=== PATIENT | female | born 1940 | race Caucasian/White ===

== ENCOUNTER → 2018-07-14 | Outpatient (CLI) | payer MEDICARE, BC ==
--- NOTE | 2018-07-18 09:13 | MM ---
Reason for exam: screening (asymptomatic). Last mammogram was performed 3 years and 1 month ago. History: Patient is postmenopausal. Benign right mammotome panel of the right breast, November 23, 2012. Took hormonal contraceptives for 5 years beginning at age 26. MG 3D Screening Mammo W/Cad Bilateral CC and MLO view(s) were taken. Prior study comparison: June 12, 2015, bilateral MG 3d screening mammo w/cad. March 09, 2014, bilateral MG screening mammo w CAD. The breast tissue is heterogeneously dense. This may lower the sensitivity of mammography. There are stable benign calcifications bilateral. No significant changes when compared with prior studies. ASSESSMENT: Benign, BI-RAD 2 RECOMMENDATION: Routine screening mammogram of both breasts in 1 year.
== END | disposition home or self-care (01) ==
LOC: RADMAMWWP 10:40
PROVIDERS: ATTEND Surgery
DX: Z12.31 Encounter for screening mammogram for malignant neoplasm of breast (principal)
CPT/HCPCS: 77063; 77067

== ENCOUNTER → 2019-12-22 | Outpatient (CLI) | payer MEDICARE, BC ==
--- NOTE | 2019-12-23 11:27 | MM ---
Reason for exam: screening (asymptomatic). Last mammogram was performed 1 year and 5 months ago. History: Patient is postmenopausal. Benign right mammotome panel of the right breast, November 23, 2012. Took hormonal contraceptives for 5 years beginning at age 26. Physical Findings: A clinical breast exam by your physician is recommended on an annual basis and results should be correlated with mammographic findings. MG 3D Screening Mammo W/Cad Bilateral CC and MLO view(s) were taken. Prior study comparison: July 14, 2018, bilateral MG 3d screening mammo w/cad. June 12, 2015, bilateral MG 3d screening mammo w/cad. The breast tissue is heterogeneously dense. This may lower the sensitivity of mammography. Stable benign calcifications. There is no discrete abnormality. No significant changes when compared with prior studies. ASSESSMENT: Benign, BI-RAD 2 RECOMMENDATION: Routine screening mammogram of both breasts in 1 year.
== END | disposition home or self-care (01) ==
LOC: RADMAMWWP 08:19
PROVIDERS: ATTEND Internal Medicine
DX: Z12.31 Encounter for screening mammogram for malignant neoplasm of breast (principal)
CPT/HCPCS: 77063; 77067

== ENCOUNTER → 2021-02-02 | Outpatient (CLI) | payer MEDICARE ==
--- NOTE | 2021-02-06 09:21 | MM ---
Reason for exam: screening (asymptomatic). Last mammogram was performed 1 year and 1 month ago. History: Patient is postmenopausal. Benign right mammotome panel of the right breast, November 23, 2012. Took hormonal contraceptives for 5 years beginning at age 26. Physical Findings: A clinical breast exam by your physician is recommended on an annual basis and results should be correlated with mammographic findings. MG 3D Screening Mammo W/Cad Bilateral CC and MLO view(s) were taken. Prior study comparison: December 22, 2019, bilateral MG 3d screening mammo w/cad. July 14, 2018, bilateral MG 3d screening mammo w/cad. June 12, 2015, bilateral MG 3d screening mammo w/cad. July 01, 2013, right diagnostic mammogram w/CAD. There is chronic nodularity bilaterally. Extensive bilateral fat necrosis calcifications. No significant changes when compared with prior studies. ASSESSMENT: Benign, BI-RAD 2 RECOMMENDATION: Routine screening mammogram of both breasts in 1 year.
== END | disposition home or self-care (01) ==
LOC: RADMAMWWP 13:07
PROVIDERS: ATTEND Internal Medicine
DX: Z12.31 Encounter for screening mammogram for malignant neoplasm of breast (principal); Z78.0 Asymptomatic menopausal state; Z79.3 Long term (current) use of hormonal contraceptives
CPT/HCPCS: 77063; 77067

== ENCOUNTER → 2022-02-20 | Outpatient (CLI) | payer MEDICARE ==
--- NOTE | 2022-02-20 14:28 | BD ---
EXAMINATION TYPE: Axial Bone Density DATE OF EXAM: 02/20/2022 COMPARISON: FIRST DEXA AT [facility] CLINICAL HISTORY: 81 years year old Female. ICD-10 CODE: Z13.820 SCREENING FOR OSTEOPOROSIS Height: 61 Weight: 162 FRAX RISK QUESTIONS: History of Fracture in Adulthood: NO Secondary Osteoporosis: RISK FACTORS HISTORY OF: Active: YES Postmenopausal woman: YES Lost more than 2 inches in height since high school: YES MEDICATIONS: Additional Medications: BP MED, VITAMIN D Additional History: EXAM MEASUREMENTS: Bone mineral densitometry was performed using the [employer] System. Bone mineral density as measured about the Lumbar spine is: ----- L1-L4(G/cm2): 1.213 T Score Values are as follows: ----- L1: 0.1 ----- L2: -0.8 ----- L3: 0.0 ----- L4: 1.4 ----- L1-L4: 0.3 FIRST DEXA [facility] Bone mineral density about the R hip (g/cm2): 0.741 Bone mineral density about the L hip (g/cm2): 0.753 T Score values are as follows: -----R Neck: -3.1 -----L Neck: -2.6 -----R Total: -2.1 -----L Total: -2.0 FRAX%s: The graph provided illustrates a 24.9% chance for a major osteoporotic fx and a 10.4% chance for the hips probability for fx in 10 years time. IMPRESSION: Osteopenia (T Score between -2.5 and -1). There is slightly increased risk of fracture and the patient may be considered for treatment. Re-Screen 2-5 years. NOTE: T-SCORE=SD OF THE YOUNG ADULT MEAN.
--- NOTE | 2022-02-21 08:48 | MM ---
Reason for Exam: Screening (asymptomatic). Last screening mammogram was performed 12 month(s) ago. Patient History: Menarche at age 17. First Full-Term at age 23. Postmenopausal. Hormonal Contraceptives for 5 years from age 26 until age 31. 11/23/2012, Benign Core Biopsy on the right side. Risk Values: Nuvia 5 year model risk: 1.6%. NCI Lifetime model risk: 2.7%. Prior Study Comparison: 11/02/2012 Bilateral Screening Mammogram, [facility]. 11/09/2012 Right Diagnostic Mammogram, [facility]. 07/01/2013 Right Diagnostic Mammogram, [facility]. 03/09/2014 Bilateral Screening Mammogram, [facility]. 06/12/2015 Bilateral Screening Mammogram, [facility]. 07/14/2018 Bilateral Screening Mammogram, [facility]. 12/22/2019 Bilateral Screening Mammogram, [facility]. 02/02/2021 Bilateral Screening Mammogram, [facility]. Tissue Density: There are scattered fibroglandular densities. Findings: Analyzed By CAD. Scattered benign-appearing round along with dystrophic and vascular calcifications bilaterally are redemonstrated. Mammotome biopsy clip in the right breast is again seen. There is new round circumscribed 4 mm lesion left breast subareolar region MLO slice 16 not clearly seen on cc view. Follow-up advised. Overall Assessment: Incomplete: need additional imaging evaluation, BI-RAD 0 Management: Diagnostic Breast Ultrasound of the left breast. Targeted ultrasound left breast. Electronically signed and approved by: Alberto Torres M.D.
== END | disposition home or self-care (01) ==
LOC: RADMAMWWP 13:15
PROVIDERS: ATTEND Internal Medicine
DX: Z13.1 Encounter for screening for diabetes mellitus (principal); Z13.820 Encounter for screening for osteoporosis; M81.0 Age-related osteoporosis without current pathological fracture; Z78.0 Asymptomatic menopausal state
CPT/HCPCS: 77063; 77067; 77080

== ENCOUNTER → 2022-03-01 | Outpatient (CLI) | payer MEDICARE ==
--- NOTE | 2022-03-01 12:24 | MM ---
Reason for Exam: Additional evaluation requested from abnormal screening. Last screening mammogram was performed less than 1 month ago. Patient History: Menarche at age 17. First Full-Term at age 23. Postmenopausal. Hormonal Contraceptives for 5 years from age 26 until age 31. 11/23/2012, Benign Core Biopsy on the right side. Risk Values: Nuvia 5 year model risk: 1.6%. NCI Lifetime model risk: 2.7%. Prior Study Comparison: 06/12/2015 Bilateral Screening Mammogram, [facility]. 07/14/2018 Bilateral Screening Mammogram, [facility]. 12/22/2019 Bilateral Screening Mammogram, [facility]. 02/02/2021 Bilateral Screening Mammogram, [facility]. 02/20/2022 Bilateral MG 3D screening mammo w/cad, [facility]. Tissue Density: Left: The breast tissue is heterogeneously dense. This may lower the sensitivity of mammography. Findings: Analyzed By CAD. Retroareolar nodular density persists. Ultrasound is advised. Overall Assessment: Incomplete: need additional imaging evaluation, BI-RAD 0 Management: Diagnostic Breast Ultrasound of the left breast. A clinical breast exam by your physician is recommended on an annual basis and results should be correlated with mammographic findings. This exam should not preclude additional follow-up of suspicious palpable abnormalities. Results were given to the patient verbally at the time of exam. Electronically signed and approved by: Rico Corcoran M.D. Radiologis
--- NOTE | 2022-03-01 12:25 | USB ---
Reason for Exam: Additional evaluation requested from abnormal screening. Patient History: Menarche at age 17. First Full-Term at age 23. Postmenopausal. Hormonal Contraceptives for 5 years from age 26 until age 31. 11/23/2012, Benign Core Biopsy on the right side. Risk Values: Nuvia 5 year model risk: 1.6%. NCI Lifetime model risk: 2.7%. Technique: Method: Targeted. Prior Study Comparison: 12/22/2019 Bilateral Screening Mammogram, [facility]. 02/02/2021 Bilateral Screening Mammogram, [facility]. 02/20/2022 Bilateral MG 3D screening mammo w/cad, [facility]. Findings: The periareolar of the left breast and the retroareolar of the left breast were scanned. Isoechoic nodular density left 4:00 position approximately 2 cm from the nipple reflect an intraductal papilloma. Tissue diagnosis is recommended.. Overall Assessment: Suspicious, BI-RAD 4 Management: Ultrasound Core Biopsy of the left breast. A clinical breast exam by your physician is recommended on an annual basis and results should be correlated with mammographic findings. Electronically signed and approved by: Rico Corcoran M.D. Radiologis
== END | disposition home or self-care (01) ==
LOC: RADUSWWP 09:00
PROVIDERS: ATTEND Internal Medicine
DX: R92.8 Other abnormal and inconclusive findings on diagnostic imaging of breast (principal); Z78.0 Asymptomatic menopausal state; Z98.890 Other specified postprocedural states
CPT/HCPCS: 77065; 76642; G0279; 77061

== ENCOUNTER → 2022-03-14 | Day surgery (SDC) | payer MEDICARE ==
--- NOTE | 2022-03-20 10:41 | USB ---
Risk Values: Nuvia 5 year model risk: 1.6%. NCI Lifetime model risk: 2.7%. Pathology Description: Location: 4 o'clock. Marker Left Behind. Needle Type: Mammotome Cores: 7 Gauge: 13 The procedure of ultrasound guided core biopsy was explained to the patient. Benefits, alternatives, and risks were discussed. An informed consent was then obtained. Initial scanning redemonstrates the oval isoechoic to hypoechoic lesion measuring 6 mm 4:00 position left breast, 2 cm from the nipple. This is targeted for biopsy. The patient was placed in supine positioning for imaging and for the procedure. The overlying skin was prepped and draped in usual sterile fashion. Lidocaine was used as anesthetic into the skin and subcutaneous tissue up to area of concern in the left breast. Under ultrasound guidance, a 13-gauge vacuum-assisted mammotome Elite biopsy gun was used to obtain 7 core samples. Following this, a coil Hydromark clip was left at the site of biopsy. The patient tolerated the procedure well without any immediate complication. The patient was kept in the radiology department for short stay after the procedure and then discharged home in stable condition. Postprocedure mammogram: The patient was transferred to mammography for physician ordered post procedure mammogram for clip placement verification. The clip is in the subareolar region near the expected mammographic finding. IMPRESSION: Successful, uncomplicated ultrasound guided core biopsy of area of concern in the 4:00 periareolar left breast, possible intraductal lesion, full pathology results to follow. Pathology Results: Result: Benign, Fibroadenoma. LEFT BREAST, FOUR O'CLOCK, ULTRASOUND GUIDED CORE BIOPSY: Benign fibroadenoma. Tissue Density: Left: There are scattered fibroglandular densities. Overall Assessment: Benign Assessment: MG diagnostic mammo LT wo CAD. - Left: Benign, BI-RAD 2. Management: Diagnostic Breast Ultrasound of the left breast in 6 months. Electronically signed and approved by: Alyssa Swanson M.D. Radiologist
== END ==
LOC: RADUSWWP 12:23
PROVIDERS: ATTEND Internal Medicine
DX: D24.2 Benign neoplasm of left breast (principal); R92.8 Other abnormal and inconclusive findings on diagnostic imaging of breast
CPT/HCPCS: 88305; 77065; 19083; A4648

== ENCOUNTER → 2022-10-03 | Outpatient (CLI) | payer MEDICARE ==
--- NOTE | 2022-10-03 12:21 | USB ---
Reason for Exam: Follow-up at short interval from prior study. Patient History: Menarche at age 17. First Full-Term at age 23. Postmenopausal. Hormonal Contraceptives for 5 years from age 26 until age 31. 03/14/2022, Benign US biopsy breast VAD LT on the left side. 11/23/2012, Benign Core Biopsy on the right side. Risk Values: Nuvia 5 year model risk: 2.0%. NCI Lifetime model risk: 3.1%. Technique: Method: Targeted. Prior Study Comparison: 02/20/2022 Bilateral MG 3D screening mammo w/cad, [facility]. 03/01/2022 Left MG 3D work up w/cad LT, [facility]. 03/14/2022 Left MG diagnostic mammo LT wo CAD., [facility]. Findings: The lower section of the breast of the left breast, the axilla of the left breast and the retroareolar of the left breast were scanned. There is a hypoechoic area which appears to contain an echogenic focus suspicious for a clip. This area appears to correspond to the prior exam. Overall Assessment: Probably benign, BI-RAD 3 Management: Screening Mammogram of both breasts in 6 months. A clinical breast exam by your physician is recommended on an annual basis and results should be correlated with mammographic findings. This exam should not preclude additional follow-up of suspicious palpable abnormalities. Results were given to the patient verbally at the time of exam. Electronically signed and approved by: Jona Brunner D.O. Radiologis
== END | disposition home or self-care (01) ==
LOC: RADUSWWP 09-23 12:06
PROVIDERS: ATTEND Internal Medicine
DX: R92.8 Other abnormal and inconclusive findings on diagnostic imaging of breast (principal); Z78.0 Asymptomatic menopausal state; Z98.890 Other specified postprocedural states

== ENCOUNTER → 2023-04-07 | Outpatient (CLI) | payer MEDICARE ==
--- NOTE | 2023-04-09 09:22 | MM ---
Reason for Exam: Screening (asymptomatic). Last mammogram was performed 1 year(s) and 2 month(s) ago. Patient History: Menarche at age 17. First Full-Term at age 23. Postmenopausal. Hormonal Contraceptives for 5 years from age 26 until age 31. 03/14/2022, Benign US biopsy breast VAD LT on the left side. 11/23/2012, Benign Core Biopsy on the right side. Risk Values: Nuvia 5 year model risk: 2.0%. NCI Lifetime model risk: 3.1%. Prior Study Comparison: 02/20/2022 Bilateral MG 3D screening mammo w/cad, [facility]. 03/01/2022 Left MG 3D work up w/cad LT, [facility]. 03/14/2022 Left MG diagnostic mammo LT wo CAD., [facility]. Tissue Density: There are scattered fibroglandular densities. Findings: Analyzed By CAD. There is no suspicious group of microcalcifications or new suspicious mass in either breast. Overall Assessment: Benign, BI-RAD 2 Management: Screening Mammogram of both breasts in 1 year. . Patient should continue monthly self-breast exams. A clinical breast exam by your physician is recommended on an annual basis. This exam should not preclude additional follow-up of suspicious palpable abnormalities. Note on Nuvia scores and lifetime risk: 1. A Nuvia score greater than 3% is considered moderate risk. If this is the case, consider specialist referral to assess eligibility for a risk reducing agent. 2. If overall lifetime risk for the development of breast cancer is 20% or higher, the patient may qualify for future screening with alternating mammogram and breast MRI. Electronically signed and approved by: Rico Corcoran M.D. Radiologis
== END | disposition home or self-care (01) ==
LOC: RADMAMWWP 13:08
PROVIDERS: ATTEND Internal Medicine
DX: Z12.31 Encounter for screening mammogram for malignant neoplasm of breast (principal); Z78.0 Asymptomatic menopausal state
CPT/HCPCS: 77063; 77067